=== PATIENT | male | born 1970 | race Caucasian/White ===

== ENCOUNTER 2017-05-19 22:13 | Emergency (ER) | payer MEDICAID ==
[~2017-05-19] VITALS: Ht 167.6 cm; Wt 99.8 kg
[2017-05-19 22:35] VITALS: BP 146/64
[2017-05-19] MEDS ORDERED: ACETAMINOPHEN EXTRA STRENGTH 500 MG TAB ONE (22:43)
--- NOTE | 2017-05-19 23:41 | NUR ---
PATIENT AMBULATED TO BED 2
--- NOTE | 2017-05-19 23:42 | NUR ---
47Y M BIB FAMILY C/O GENERALIZED BODY ACHES, RUNNY AND STUFFY NOSE, SORE THROAT 9/10 PAIN. PT DENIES ANY N/V/D, SOB, CP AT THE MOMENT. PT AAOX4 BREATHING IS UNLABORED AND EVEN. PT DENIES ANY ALLERGIES OR MED HX. PT AMBULATED TO ER BED 2 WITH STEADY GAIT.
[2017-05-20] MEDS ORDERED: KETOROLAC 60 MG/2 ML VIAL IM ONE (01:20)
[2017-05-20 01:40] VITALS: BP 132/71
--- NOTE | 2017-05-20 01:40 | NUR ---
Patient discharged with v/s stable. Written and verbal after care instructions given and explained. Patient alert, oriented and verbalized understanding of instructions. Ambulatory with steady gait. All questions addressed prior to discharge. ID band removed. Patient advised to follow up with PMD. Rx of MOTRIN 800MG, TAMIFLU 75MG AND PREDNISONE 20MG given. Patient educated on indication of medication including possible reaction and side effects. Opportunity to ask questions provided and answered.
== END 2017-05-20 01:40 | disposition home or self-care (01) ==
LOC: MED 22:13
DX: J11.1 Influenza due to unidentified influenza virus with other respiratory manifestations (principal); R50.9 Fever, unspecified; R05 Cough
CPT/HCPCS: 96372; 99283; J1885

== ENCOUNTER 2017-08-07 22:44 | Emergency (ER) | payer MEDICAID ==
[~2017-08-07] VITALS: Ht 172.7 cm; Wt 104.0 kg
[2017-08-07 22:50] VITALS: BP 135/70
--- NOTE | 2017-08-07 23:05 | NUR ---
TO ER BED
--- NOTE | 2017-08-07 23:10 | NUR ---
PT CAME IN C/O PAIN TO TESTICLES, GROINS AND GOING DOWN TO LEGS. 11/19. DENIES MEDICAL HX. A&O X4. RR EVEN AND UNLABORED. SKIN INTACT. VSS. ER MD DR. NIEVES MADE AWARE.
--- NOTE | 2017-08-07 23:11 | NUR ---
DR. NIEVES AT BED SIDE EVALUATING PT.
[2017-08-07 23:19] VITALS: BP 127/70
--- NOTE | 2017-08-07 23:19 | NUR ---
Patient discharged with v/s stable. Written and verbal after care instructions given and explained. Patient alert, oriented and verbalized understanding of instructions. Ambulatory with steady gait. All questions addressed prior to discharge. ID band removed. Patient advised to follow up with PMD. Rx of CIPROFLACIN 500MG, NAPROSYN 500MG given. Patient educated on indication of medication including possible reaction and side effects. Opportunity to ask questions provided and answered.
== END 2017-08-07 23:19 | disposition home or self-care (01) ==
LOC: MED 22:44
DX: N45.1 Epididymitis (principal)
CPT/HCPCS: 99283

== ENCOUNTER 2018-01-04 11:16 | Emergency (ER) | payer MEDICAID ==
[~2018-01-04] VITALS: Ht 167.6 cm; Wt 104.3 kg
[2018-01-04 11:17] VITALS: BP 141/83
--- NOTE | 2018-01-04 11:25 | NUR ---
47Y/M BIB SELF C/O TESTICULAR PAIN AND SWELLING THAT BEGAN YESTERDAY, PAIN RADIATES TO LEFT FLANK. DENIES DYSURIA, DENIES FEVER/CHILLS/N/V/D. REPORTS TOOK IBUPROFEN YESTERDAY W/ ALLEVIATED THE PAIN TEMPORARILY, BUT PAIN IS 10/10 W/ AMBULATION. BED DOWN; BEDRAIL UP X 1; ER MD AWARE AND NOTIFIED OF PT STATUS. HX DENIES RX DENIES
[2018-01-04] MEDS ORDERED: KETOROLAC 60 MG/2 ML VIAL IM ONE (11:50)
--- NOTE | 2018-01-04 11:50 | NUR ---
Patient being evaluated by physician at bedside.
[2018-01-04 12:15] LABS: APPEARANCE,URINE CLEAR (CLEAR); BILIRUBIN,URINE NEGATIVE (NEGATIVE); BLOOD, URINE 1+ (NEGATIVE); COLOR,URINE YELLOW (YELLOW); LEUKOCYTE ESTERASE ,URINE 1+ (NEGATIVE); NITRITE, URINE NEGATIVE (NEGATIVE); UGLUCOSE NEGATIVE (NEGATIVE)
[2018-01-04 12:40] LABS: RBC,URINE 3-10 (FEW) /HPF (0-5)
[2018-01-04 14:08] VITALS: BP 137/81
--- NOTE | 2018-01-04 14:08 | NUR ---
Patient discharged with v/s stable. Written and verbal after care instructions given and explained. Patient alert, oriented and verbalized understanding of instructions. Ambulatory with steady gait. All questions addressed prior to discharge. ID band removed. Patient advised to follow up with PMD. Rx of levaquin and naprosyn given. Patient educated on indication of medication including possible reaction and side effects. Opportunity to ask questions provided and answered.
== END 2018-01-04 14:08 | disposition home or self-care (01) ==
LOC: MED 11:16
DX: N39.0 Urinary tract infection, site not specified (principal); N50.3 Cyst of epididymis
CPT/HCPCS: 36415; 76870; 81001; 87086; 96372; 99285; J1885; Q0092

== ENCOUNTER 2018-04-23 07:47 | Emergency (ER) | payer MEDICAID ==
[~2018-04-23] VITALS: Ht 182.9 cm; Wt 99.8 kg
[2018-04-23 07:53] VITALS: BP 126/84
[2018-04-23] MEDS ORDERED: KETOROLAC 30 MG/ML VIAL IM ONE (08:25)
[2018-04-23] MEDS ORDERED: ONDANSETRON 4 MG ODT PO ONE (08:25)
[2018-04-23 09:20] VITALS: BP 125/82
== END 2018-04-23 09:20 | disposition home or self-care (01) ==
LOC: MED 07:47
DX: R05 Cough (principal); R51 Headache; R11.0 Nausea; R09.89 Other specified symptoms and signs involving the circulatory and respiratory systems
CPT/HCPCS: 96372; 99283; J1885; Q0162

== ENCOUNTER 2019-09-19 09:44 | Emergency (ER) | payer MEDICAID ==
[~2019-09-19] VITALS: Ht 172.7 cm; Wt 99.8 kg
[2019-09-19 09:54] VITALS: BP 135/92
--- NOTE | 2019-09-19 10:02 | NUR ---
PT AMB TO BED 2.
[2019-09-19] MEDS ORDERED: NACL 0.9% 1,000 ML IV ONE (10:20)
[2019-09-19] MEDS ORDERED: KETOROLAC 15 MG/ML VIAL IVP ONE (10:20)
[2019-09-19] MEDS ORDERED: PROCHLORPERAZINE 10 MG/2 ML VIAL IVP ONE (10:20)
[2019-09-19] MEDS ORDERED: diphenhydrAMINE 50 MG/ML VIAL IVP ONE (10:20)
--- NOTE | 2019-09-19 11:00 | NUR ---
DENIES HEADACHE OR N/V--PT CURRENTLY ON HIS CELLPHONE
[2019-09-19 12:10] VITALS: BP 134/78
--- NOTE | 2019-09-19 12:16 | NUR ---
Patient discharged with v/s stable. Written and verbal after care instructions given and explained. Patient verbalized understanding. Ambulatory with steady gait. All questions addressed prior to discharge. Advised to follow up with PMD.
== END 2019-09-19 12:08 | disposition home or self-care (01) ==
LOC: MED 09:44
DX: R51 Headache (principal); M54.6 Pain in thoracic spine; M54.2 Cervicalgia
CPT/HCPCS: 96374; 96375; 99284; J0780; J1200; J1885; J7030

== ENCOUNTER 2020-04-06 09:51 | Emergency (ER) | payer MEDICAID ==
[~2020-04-06] VITALS: Ht 172.7 cm; Wt 104.3 kg
[2020-04-06 10:07] VITALS: BP 156/96
--- NOTE | 2020-04-06 10:09 | NUR ---
PT LEFT IN COVID TENT FOR MSE.
--- NOTE | 2020-04-06 12:27 | NUR ---
Patient discharged with v/s stable. Written and verbal after care instructions given and explained. Patient alert, oriented and verbalized understanding of instructions. Ambulatory with steady gait. All questions addressed prior to discharge. ID band removed. Patient advised to follow up with PMD. Rx of FLUTICASONE PROPIONATE, TESSALON,MOTRIN & CHLORHEXIDINE given. Patient educated on indication of medication including possible reaction and side effects. Opportunity to ask questions provided and answered.
--- NOTE | 2020-04-06 12:27 | NUR ---
COVID SWAB COLLECTED.
[2020-04-06 12:29] VITALS: BP 156/96
== END 2020-04-06 12:27 | disposition home or self-care (01) ==
LOC: MED 09:51
DX: U07.1 COVID-19 (principal); J02.9 Acute pharyngitis, unspecified
CPT/HCPCS: 99283; U0003

== ENCOUNTER 2020-11-18 18:22 | Emergency (ER) | payer MEDICAID ==
[~2020-11-18] VITALS: Ht 175.3 cm; Wt 104.3 kg
[2020-11-18 18:54] VITALS: BP 150/102
[2020-11-18] MEDS ORDERED: LORazepam 0.5 MG TAB PO ONE (21:30)
[2020-11-18] MEDS ORDERED: LORazepam 0.5 MG TAB ONE (22:47)
--- NOTE | 2020-11-18 23:00 | NUR ---
seen by ERMD no nursing interventions needed.
[2020-11-18 23:36] VITALS: BP 132/89
--- NOTE | 2020-11-18 23:36 | NUR ---
Patient discharged with v/s stable. Written and verbal after care instructions given and explained. Patient verbalized understanding. Ambulatory with steady gait. ID band removed. All questions addressed prior to discharge. Advised to follow up with PMD.
== END 2020-11-18 23:36 | disposition home or self-care (01) ==
LOC: MED 18:22
DX: G44.209 Tension-type headache, unspecified, not intractable (principal); F41.9 Anxiety disorder, unspecified
CPT/HCPCS: 99283

== ENCOUNTER 2021-02-16 16:29 | Emergency (ER) | payer MEDICAID ==
[~2021-02-16] VITALS: Ht 165.1 cm; Wt 108.0 kg
[2021-02-16 16:46] VITALS: BP 157/104
[2021-02-16] MEDS ORDERED: CARB15DR61 OT (17:04)
--- NOTE | 2021-02-16 17:14 | NUR ---
Patient discharged with v/s stable. Written and verbal after care instructions given and explained. Patient alert, oriented and verbalized understanding of instructions. Ambulatory with steady gait. All questions addressed prior to discharge. ID band removed. Patient advised to follow up with PMD. Rx of DEBROX given. Patient educated on indication of medication including possible reaction and side effects. Opportunity to ask questions provided and answered.
--- NOTE | 2021-02-16 17:14 | NUR ---
NO NURSING CARE GIVEN
[2021-02-16 17:16] VITALS: BP 157/104
== END 2021-02-16 17:14 | disposition home or self-care (01) ==
LOC: MED 16:29
DX: H61.23 Impacted cerumen, bilateral (principal); Z79.899 Other long term (current) drug therapy
CPT/HCPCS: 99283

== ENCOUNTER 2021-04-15 16:12 | Emergency (ER) | payer MEDICAID ==
[~2021-04-15] VITALS: Ht 172.7 cm; Wt 104.3 kg
[~2021-04-15 16:12] MED LIST: CARB15DR61 OT
[2021-04-15 16:32] VITALS: BP 138/89
[2021-04-15] MEDS: HYDROcodone/APAP 5/325 MG 1 TAB TAB PO ONE (16:50)
[2021-04-15] MEDS: IBUPROFEN 600 MG TAB PO ONE (16:50)
[2021-04-15] MEDS ORDERED: ACET-10509 PO (18:12)
[2021-04-15] MEDS ORDERED: IBUP-2213 PO (18:12)
[2021-04-15] MEDS ORDERED: HYDROcodone/APAP 5/325 MG 1 TAB TAB ONE (19:34)
--- NOTE | 2021-04-15 19:36 | NUR ---
Patient discharged with v/s stable. Written and verbal after care instructions given and explained. Patient alert, oriented and verbalized understanding of instructions. Ambulatory with steady gait. All questions addressed prior to discharge. ID band removed. Patient advised to follow up with PMD. Rx of TYLENOL MOTRIN given. Patient educated on indication of medication including possible reaction and side effects. Opportunity to ask questions provided and answered.
== END 2021-04-15 19:36 | disposition home or self-care (01) ==
LOC: MED 16:12
DX: S30.0XXA Contusion of lower back and pelvis, initial encounter (principal); Z79.899 Other long term (current) drug therapy; Z79.1 Long term (current) use of non-steroidal anti-inflammatories (NSAID); W22.8XXA Striking against or struck by other objects, initial encounter; Y92.89 Other specified places as the place of occurrence of the external cause; Y93.89 Activity, other specified; Y99.8 Other external cause status
CPT/HCPCS: 72100; 72220; 99284

== ENCOUNTER 2021-04-17 07:59 | Emergency (ER) | payer MEDICAID ==
[~2021-04-17] VITALS: Ht 185.4 cm; Wt 107.0 kg
[~2021-04-17 07:59] MED LIST changes: +ACET-10509 PO; +IBUP-2213 PO
[2021-04-17 08:24] VITALS: BP 146/77
--- NOTE | 2021-04-17 08:27 | NUR ---
PT SENT TO LOBBY
[2021-04-17 09:38] VITALS: BP 146/77
--- NOTE | 2021-04-17 09:38 | NUR ---
NO NURSING INTERVENTIONS PROVIDED
--- NOTE | 2021-04-17 09:39 | NUR ---
Patient discharged with v/s stable. Written and verbal after care instructions ABOUT CONTUSION given and explained. Patient verbalized understanding. Ambulatory with steady gait. All questions addressed prior to discharge. Advised to follow up with PMD.
== END 2021-04-17 09:39 | disposition home or self-care (01) ==
LOC: MED 07:59
DX: M54.59 Other low back pain (principal)
CPT/HCPCS: 99281

== ENCOUNTER 2021-12-24 18:47 | Emergency (ER) | payer BC, MEDICAID ==
[~2021-12-24] VITALS: Ht 175.3 cm; Wt 107.0 kg
[2021-12-24 18:52] VITALS: BP 165/106
--- NOTE | 2021-12-24 18:59 | NUR ---
Patient ambulated to bed 4.
--- NOTE | 2021-12-24 19:12 | NUR ---
Pt report given to MICHAEL Sheets. Transfer of care at this time.
== END 2021-12-24 20:31 | disposition home or self-care (01) ==
LOC: MED 18:47
DX: L98.8 Other specified disorders of the skin and subcutaneous tissue (principal); R03.0 Elevated blood-pressure reading, without diagnosis of hypertension; Z11.3 Encounter for screening for infections with a predominantly sexual mode of transmission; Z79.899 Other long term (current) drug therapy; Z79.1 Long term (current) use of non-steroidal anti-inflammatories (NSAID)
CPT/HCPCS: 36415; 81002; 86592; 87491; 87529; 99283

== ENCOUNTER 2022-04-18 18:35 | Emergency (ER) | payer BC ==
[~2022-04-18] VITALS: Ht 175.3 cm; Wt 108.9 kg
[2022-04-18 18:58] VITALS: BP 168/109
[2022-04-18] MEDS ORDERED: AMOX-999 PO (19:34)
--- NOTE | 2022-04-18 19:55 | NUR ---
Written and verbal after care instructions given and explained. Patient alert, oriented and verbalized understanding of instructions. Ambulatory with steady gait. All questions addressed prior to discharge. ID band removed. Patient advised to follow up with PMD. Rx of AMOXICILLIN/POTASSIUM CLAV given. Patient educated on indication of medication including possible reaction and side effects. Opportunity to ask questions provided and answered.
== END 2022-04-18 19:55 | disposition home or self-care (01) ==
LOC: MED 18:35
DX: H92.03 Otalgia, bilateral (principal); H66.93 Otitis media, unspecified, bilateral
CPT/HCPCS: 99283

== ENCOUNTER 2022-05-18 23:15 | Emergency (ER) | payer BC ==
[~2022-05-18] VITALS: Ht 175.3 cm; Wt 104.3 kg
[~2022-05-18 23:15] MED LIST changes: +AMOX-999 PO
[2022-05-18 23:25] VITALS: BP 150/90
--- NOTE | 2022-05-18 23:29 | NUR ---
TO LOBBY A/W BED AMBULATORY
--- NOTE | 2022-05-19 03:13 | NUR ---
PT TO XRAY
--- NOTE | 2022-05-19 03:58 | NUR ---
PT TO 9
[2022-05-19] MEDS ORDERED: PRED20TA5 PO (04:26)
[2022-05-19] MEDS ORDERED: BENZ200C4 PO (04:26)
[2022-05-19] MEDS ORDERED: ACET-10509 PO (04:26)
[2022-05-19] MEDS ORDERED: BENZ-300 PO (04:26)
[2022-05-19 04:40] VITALS: BP 150/90
== END 2022-05-19 04:40 | disposition home or self-care (01) ==
LOC: MED 23:15
DX: R05.9 Cough, unspecified (principal); J02.9 Acute pharyngitis, unspecified; M79.18 Myalgia, other site; Z79.899 Other long term (current) drug therapy; Z79.1 Long term (current) use of non-steroidal anti-inflammatories (NSAID); Z79.2 Long term (current) use of antibiotics
CPT/HCPCS: 71045; 99283

== ENCOUNTER 2022-05-28 18:04 | Emergency (ER) | payer BC ==
[~2022-05-28] VITALS: Ht 175.3 cm; Wt 107.2 kg
[~2022-05-28 18:04] MED LIST changes: +BENZ-300 PO; +BENZ200C4 PO; +PRED20TA5 PO
[2022-05-28 18:14] VITALS: BP 153/104
[2022-05-28] MEDS ORDERED: AMOX500C25 PO (19:15)
[2022-05-28] MEDS ORDERED: OFLO5SOL27 BOTH EARS (19:15)
[2022-05-28 19:20] VITALS: BP 153/104
--- NOTE | 2022-05-28 19:20 | NUR ---
Patient discharged with v/s stable. Written and verbal after care instructions given and explained. Patient alert, oriented and verbalized understanding of instructions. Ambulatory with steady gait. All questions addressed prior to discharge. ID band removed. Patient advised to follow up with PMD. Rx of AMOXICILLIN, AND FLOXIN given. Patient educated on indication of medication including possible reaction and side effects. Opportunity to ask questions provided and answered.
== END 2022-05-28 19:20 | disposition home or self-care (01) ==
LOC: MED 18:04
DX: H66.93 Otitis media, unspecified, bilateral (principal); H60.93 Unspecified otitis externa, bilateral
CPT/HCPCS: 99283

== ENCOUNTER 2022-07-07 15:40 | Emergency (ER) | payer BC ==
[~2022-07-07] VITALS: Ht 175.3 cm; Wt 106.6 kg
[~2022-07-07 15:40] MED LIST changes: +AMOX500C25 PO; +OFLO5SOL27 BOTH EARS
[2022-07-07 15:48] VITALS: BP 143/99
[2022-07-07] MEDS ORDERED: FLONAS NS (17:05)
[2022-07-07] MEDS ORDERED: IBUP-2213 PO (17:05)
[2022-07-07] MEDS ORDERED: BENZ200C4 PO (17:05)
== END 2022-07-07 17:25 | disposition home or self-care (01) ==
LOC: MED 15:40
DX: R05.9 Cough, unspecified (principal); J31.0 Chronic rhinitis; Z79.899 Other long term (current) drug therapy; Z79.2 Long term (current) use of antibiotics; Z79.1 Long term (current) use of non-steroidal anti-inflammatories (NSAID)
CPT/HCPCS: 71045; 99283

== ENCOUNTER 2023-02-23 22:54 | Emergency (ER) | payer BC ==
[~2023-02-23] VITALS: Ht 180.3 cm; Wt 104.3 kg
[~2023-02-23 22:54] MED LIST changes: +FLONAS NS
[2023-02-23 23:07] VITALS: BP 138/88; PULSE 81; RESP 18; TEMP 97.8; O2SAT 99
[2023-02-23 23:56] LABS: FLU A ANTIGEN negative (NEGATIVE); FLU B ANTIGEN NEGATIVE (NEGATIVE)
[2023-02-24 01:27] VITALS: O2SAT 98
[2023-02-24] MEDS ORDERED: ROBAC PO (01:45)
[2023-02-24] MEDS ORDERED: NAPR-54 PO (01:45)
[2023-02-24] MEDS ORDERED: ALBU0.0912 IH (01:45)
[2023-02-24] MEDS ORDERED: KETOROLAC 30 MG/ML VIAL IM ONE (01:45)
[2023-02-24] MEDS ORDERED: ACETAMIN/CODEINE 120/12MG-5ML 5 ML UDC PO ONE (01:45)
[2023-02-24 02:15] VITALS: BP 130/76; PULSE 80; RESP 18; TEMP 97.8; O2SAT 98
== END 2023-02-24 02:15 | disposition home or self-care (01) ==
LOC: MED 22:54
DX: J20.9 Acute bronchitis, unspecified (principal); Z20.822 Contact with and (suspected) exposure to COVID-19; Z79.899 Other long term (current) drug therapy; Z79.1 Long term (current) use of non-steroidal anti-inflammatories (NSAID); Z79.2 Long term (current) use of antibiotics
CPT/HCPCS: 71045; 87426; 87804; 93005; 96372; 99285; J1885

== ENCOUNTER 2023-07-11 14:56 | Emergency (ER) | payer BC ==
[~2023-07-11] VITALS: Ht 180.3 cm; Wt 108.0 kg
[~2023-07-11 14:56] MED LIST changes: +ALBU0.0912 IH; +NAPR-54 PO; +ROBAC PO
[2023-07-11 15:00] VITALS: BP 150/97; PULSE 92; RESP 18; TEMP 98.7; O2SAT 96
[2023-07-11] MEDS: KETOROLAC 30 MG/ML VIAL IM ONE (15:35)
[2023-07-11] MEDS: LIDOCAINE 5% 1 EA PATCH TP ONE (15:36)
[2023-07-11 15:51] LABS: ANION GAP 12.9 (8-16); CALCIUM 8.7 mg/dL (8.5-10.1); CREATININE 1.2 mg/dL (0.6-1.3); POTASSIUM 3.9 mmol/L (3.5-5.1)
[2023-07-11 15:54] LABS: BASOPHILS # (AUTO) 0.1 K/uL (0.00-0.22); BASOPHILS % (AUTO) 1.1 % (0.0-2.0); EOSINOPHILS % (AUTO) 11.4 % (0.0-4.0); HEMATOCRIT 44.6 % (36-52); HEMOGLOBIN 15.2 g/dL (12.0-18.0); LYMPHOCYTES # (AUTO) 2.3 K/uL (2.0-11.5); LYMPHOCYTES % (AUTO) 25.9 % (20.5-51.1); MEAN CORPUSCULAR HEMOGLOBIN 30 pg (27-31); MEAN CORPUSCULAR HGB CONC 34 g/dL (33-37); MEAN CORPUSCULAR VOLUME 87.5 fL (80-94); MONOCYTES # (AUTO) 0.5 K/uL (0.8-1.0); MONOCYTES % (AUTO) 6.1 % (1.7-9.3); NEUTROPHILS # (AUTO) 4.9 K/uL (1.8-7.7); NEUTROPHILS % (AUTO) 55.5 % (42.2-75.2); PLATELET COUNT (AUTO) 227 K/uL (140-450); WHITE BLOOD COUNT (AUTO) 8.9 K/uL (4.8-10.8)
[2023-07-11 15:55] LABS: INR 0.99 (0.8-1.2); PARTIAL THROMBOPLASTIN TIME 25.3 secs (22-35.6); PROTHROMBIN TIME 10.4 secs (10.8-13.4)
[2023-07-11 16:00] VITALS: TEMP 98.4
[2023-07-11 16:16] LABS: ALANINE AMINOTRANSFERASE 38 U/L (12-78); ALKALINE PHOSPHATASE 95 U/L (50-136); ASPARTATE AMINOTRANSFERASE 13 U/L (15-37); TOTAL BILIRUBIN 0.2 mg/dL (0.0-1.0); TOTAL PROTEIN, SERUM 7.5 g/dL (6.4-8.2)
[2023-07-11] MEDS: methocarbamoL 500 MG TAB PO STA (17:03)
[2023-07-11] MEDS ORDERED: IBUP-2213 PO (18:43)
[2023-07-11] MEDS ORDERED: LID5T TP (18:43)
[2023-07-11 19:02] VITALS: BP 138/78; PULSE 74; RESP 15; O2SAT 95
== END 2023-07-11 19:02 | disposition home or self-care (01) ==
LOC: MED 14:56
DX: R07.89 Other chest pain (principal); Z79.899 Other long term (current) drug therapy
CPT/HCPCS: 36415; 71045; 80048; 80076; 83880; 84484; 85025; 85610; 85730; 93005; 96372; 99285; J1885; Q0092

== ENCOUNTER 2023-12-14 05:15 | Inpatient (IN) | payer BC, MEDICAID ==
[~2023-12-14] VITALS: Ht 177.3 cm; Wt 113.4 kg
[2023-12-14] VITALS (9 sets, daily range): BP systolic 147–170; BP diastolic 89–98; PULSE 75–82; RESP 18–22; TEMP 98.1–101.1; O2SAT 93–96
[~2023-12-14 05:15] MED LIST changes: -ACET-10509 PO; +ACET500T99 PO; +LID5T TP; +NAPR-337 PO; -NAPR-54 PO
[2023-12-14 06:21] LABS: BASOPHILS # (AUTO) 0.1 K/uL (0.00-0.22); BASOPHILS % (AUTO) 0.9 % (0.0-2.0); EOSINOPHILS # (AUTO) 0.8 K/uL (0-0.4); EOSINOPHILS % (AUTO) 10.9 % (0.0-4.0); HEMATOCRIT 43.4 % (36-52); HEMOGLOBIN 14.6 g/dL (12.0-18.0); LYMPHOCYTES # (AUTO) 2.2 K/uL (2.0-11.5); LYMPHOCYTES % (AUTO) 28.6 % (20.5-51.1); MEAN CORPUSCULAR HEMOGLOBIN 30 pg (27-31); MEAN CORPUSCULAR HGB CONC 34 g/dL (33-37); MEAN CORPUSCULAR VOLUME 87.7 fL (80-94); MONOCYTES # (AUTO) 0.5 K/uL (0.8-1.0); MONOCYTES % (AUTO) 6.6 % (1.7-9.3); PLATELET COUNT (AUTO) 208 K/uL (140-450); RED BLOOD CELL COUNT(AUTO) 4.94 MIL/uL (4.20-6.10); RED CELL DISTRIBUTION WIDTH 13.8 % (11.6-13.7); WHITE BLOOD COUNT (AUTO) 7.6 K/uL (4.8-10.8)
[2023-12-14] MEDS: ONDANSETRON 4 MG/2 ML VIAL IVP ONE (06:22)
[2023-12-14] MEDS: KETOROLAC 30 MG/ML VIAL IVP ONE (06:22)
[2023-12-14 06:34] LABS: ANION GAP 9.9 (8-16); CALCIUM 8.7 mg/dL (8.5-10.1); CARBON DIOXIDE 29.1 mmol/L (21-32); CREATININE 1.3 mg/dL (0.6-1.3)
[2023-12-14 06:40] LABS: INR 1.07 (0.8-1.2); PROTHROMBIN TIME 11.2 secs (10.8-13.4)
[2023-12-14 06:44] LABS: ALANINE AMINOTRANSFERASE 41 U/L (12-78); ALBUMIN 3.7 g/dL (3.4-5.0); ALKALINE PHOSPHATASE 91 U/L (50-136); ASPARTATE AMINOTRANSFERASE 18 U/L (15-37); BILIRUBIN,DIRECT 0.1 mg/dL (0.0-0.3); LIPASE 37 U/L (16-77); TOTAL BILIRUBIN 0.4 mg/dL (0.0-1.0); TOTAL PROTEIN, SERUM 7.4 g/dL (6.4-8.2)
[2023-12-14 07:02] LABS: APPEARANCE,URINE CLEAR (CLEAR); BILIRUBIN,URINE NEGATIVE (NEGATIVE); BLOOD, URINE NEGATIVE (NEGATIVE); COLOR,URINE YELLOW (YELLOW); LEUKOCYTE ESTERASE ,URINE NEGATIVE (NEGATIVE); NITRITE, URINE NEGATIVE (NEGATIVE); PROTEIN,URINE NEGATIVE (NEGATIVE); UGLUCOSE NEGATIVE (NEGATIVE); UROBILINOGEN,URINE 0.2 EU/dL (0.2 - 1)
[2023-12-14 07:44] LABS: FLU A ANTIGEN negative (NEGATIVE); FLU B ANTIGEN NEGATIVE (NEGATIVE)
[2023-12-14] MEDS ORDERED: POTASSIUM CHLORIDE 10 MEQ TABER PO PRN (10:15)
[2023-12-14] MEDS ORDERED: MAGNESIUM OXIDE 400 MG TAB PO PRN (10:15)
[2023-12-14] MEDS ORDERED: MAG SULF 2000 MG/WATER PREMIX 50 ML IV PRN (10:15)
[2023-12-14] MEDS ORDERED: KCL 20 MEQ IN 100 mL PREMIX 200 ML IV PRN (10:15)
[2023-12-14] MEDS: HYDROcodone/APAP 5/325 MG 1 TAB TAB PO PRN (10:48)
[2023-12-14] MEDS: ONDANSETRON 4 MG/2 ML VIAL IVP PRN (14:55)
[2023-12-14] MEDS: MORPHINE SULFATE 4 MG/ML SYR IVP PRN (18:49)
[2023-12-15 04:00] VITALS: BP 148/83; PULSE 76; RESP 18; TEMP 98.4; O2SAT 95
[2023-12-15 06:57] LABS: BASOPHILS # (AUTO) 0.1 K/uL (0.00-0.22); BASOPHILS % (AUTO) 0.6 % (0.0-2.0); EOSINOPHILS # (AUTO) 0.2 K/uL (0-0.4); EOSINOPHILS % (AUTO) 2.6 % (0.0-4.0); HEMATOCRIT 41.2 % (36-52); HEMOGLOBIN 14.1 g/dL (12.0-18.0); LYMPHOCYTES # (AUTO) 1.6 K/uL (2.0-11.5); LYMPHOCYTES % (AUTO) 17.2 % (20.5-51.1); MEAN CORPUSCULAR HEMOGLOBIN 30 pg (27-31); MEAN CORPUSCULAR HGB CONC 34 g/dL (33-37); MONOCYTES # (AUTO) 0.8 K/uL (0.8-1.0); MONOCYTES % (AUTO) 8.8 % (1.7-9.3); NEUTROPHILS # (AUTO) 6.6 K/uL (1.8-7.7); NEUTROPHILS % (AUTO) 70.8 % (42.2-75.2); PLATELET COUNT (AUTO) 210 K/uL (140-450); RED BLOOD CELL COUNT(AUTO) 4.74 MIL/uL (4.20-6.10); RED CELL DISTRIBUTION WIDTH 13.6 % (11.6-13.7); WHITE BLOOD COUNT (AUTO) 9.4 K/uL (4.8-10.8)
[2023-12-15 07:10] LABS: CALCIUM 8.8 mg/dL (8.5-10.1); CARBON DIOXIDE 26.9 mmol/L (21-32); CREATININE 1.1 mg/dL (0.6-1.3); POTASSIUM 3.9 mmol/L (3.5-5.1)
[2023-12-15 07:14] LABS: MAGNESIUM 2.1 mg/dL (1.8-2.4); PHOSPHORUS 3.5 mg/dL (2.5-4.9)
[2023-12-15 08:00] VITALS: BP 143/86; PULSE 77; RESP 18; TEMP 98.4; O2SAT 94
[2023-12-15 10:06] LABS: PROTEIN, TOTAL, SERUM 6.9 g/dL (6.0-8.5)
[2023-12-15 15:07] LABS: ALBUMIN 3.5 g/dL (2.9-4.4); ALPHA-1-GLOBULIN 0.2 g/dL (0.0-0.4); ALPHA-2-GLOBULIN 0.7 g/dL (0.4-1.0); BETA GLOBULIN 1.3 g/dL (0.7-1.3); GAMMA GLOBULIN 1.3 g/dL (0.4-1.8); GLOBULIN, TOTAL 3.4 g/dL (2.2-3.9); M-SPIKE Not Observed g/dL (Not Observed)
[2023-12-15 16:00] VITALS: BP 158/91; PULSE 79; RESP 18; TEMP 98.2; O2SAT 94
[2023-12-15 20:00] VITALS: BP 156/95; PULSE 85; RESP 18; RESP 20; TEMP 98.1; O2SAT 96
[2023-12-16 04:00] VITALS: BP 135/84; PULSE 76; RESP 18; TEMP 98.3; O2SAT 94
[2023-12-16 06:49] LABS: BASOPHILS # (AUTO) 0.1 K/uL (0.00-0.22); BASOPHILS % (AUTO) 0.7 % (0.0-2.0); EOSINOPHILS # (AUTO) 0.6 K/uL (0-0.4); EOSINOPHILS % (AUTO) 6.8 % (0.0-4.0); HEMATOCRIT 44.8 % (36-52); HEMOGLOBIN 15.3 g/dL (12.0-18.0); LYMPHOCYTES # (AUTO) 2.2 K/uL (2.0-11.5); LYMPHOCYTES % (AUTO) 25.6 % (20.5-51.1); MEAN CORPUSCULAR HEMOGLOBIN 30 pg (27-31); MEAN CORPUSCULAR HGB CONC 34 g/dL (33-37); MEAN CORPUSCULAR VOLUME 86.8 fL (80-94); MONOCYTES # (AUTO) 0.7 K/uL (0.8-1.0); MONOCYTES % (AUTO) 8.6 % (1.7-9.3); NEUTROPHILS % (AUTO) 58.3 % (42.2-75.2); PLATELET COUNT (AUTO) 226 K/uL (140-450); RED BLOOD CELL COUNT(AUTO) 5.16 MIL/uL (4.20-6.10); WHITE BLOOD COUNT (AUTO) 8.5 K/uL (4.8-10.8)
[2023-12-16 06:57] LABS: CALCIUM 8.9 mg/dL (8.5-10.1); CARBON DIOXIDE 26.9 mmol/L (21-32); CREATININE 1.1 mg/dL (0.6-1.3); POTASSIUM 3.9 mmol/L (3.5-5.1)
[2023-12-16 07:05] LABS: MAGNESIUM 2.2 mg/dL (1.8-2.4); PHOSPHORUS 3.7 mg/dL (2.5-4.9)
[2023-12-16 08:00] VITALS: BP 132/83; PULSE 77; RESP 18; TEMP 98.4; TEMP 98.9; O2SAT 94; O2SAT 96; O2SAT 99
[2023-12-16 16:00] VITALS: BP 130/80; PULSE 78; RESP 18; TEMP 98.3; O2SAT 93
[2023-12-16] MEDS ORDERED: PANT40EC PO (18:24)
[2023-12-16 20:00] VITALS: BP 138/90; PULSE 73; RESP 18; TEMP 98.4; O2SAT 94
[2023-12-16 20:07] VITALS: BP 138/90; PULSE 73; TEMP 98.4
[2023-12-16] MEDS: ACETAMINOPHEN 325 MG TAB PO PRN (20:21)
[2023-12-17 16:06] LABS: ALBUMIN, UR 27.8 % (.); ALPHA-1-GLOBULIN, UR 2.3 % (.); ALPHA-2-GLOBULIN, UR 13.9 % (.); BETA GLOBULIN, UR 33.5 % (.); GAMMA GLOBULIN, UR 22.5 % (.); PROTEIN, TOTAL, URINE 12.3 mg/dL (Not Estab.)
== END 2023-12-16 20:40 | disposition home or self-care (01) | DRG 347 ==
LOC: MED 05:15 → MTU 10:16
PROVIDERS: ADMIT Hospitalist; ATTEND Hospitalist
DX: M54.89 Other dorsalgia (principal); E44.0 Moderate protein-calorie malnutrition; K21.9 Gastro-esophageal reflux disease without esophagitis; R91.8 Other nonspecific abnormal finding of lung field; Z20.822 Contact with and (suspected) exposure to COVID-19; R51.9 Headache, unspecified; Z68.36 Body mass index [BMI] 36.0-36.9, adult
CPT/HCPCS: 36415; 70450; 71045; 78306; 80048; 80076; 81003; 83690; 83735; 83880; 84100; 84165; 84484; 85025; 85610; 85730; 87040; 87081; 93005; 96374; 96375; 99285; A9503; J1644; J1885; J2270; J2405; Q0092